=== PATIENT | male | born 1990 | race Caucasian/White ===

== ENCOUNTER 2022-07-29 23:05 | Emergency (ER) | payer BC, SELFPAY ==
--- NOTE | ~2022-07-29 | XR_ITS ---
EXAMINATION: XR chest 2V DATE: 07/30/2022 00:41 INDICATION: Transient alteration of awareness TECHNIQUE: PA and lateral views of the chest are obtained. COMPARISON: None available FINDINGS: The lungs are free of acute opacities. No pleural effusion or pneumothorax. The cardiomedia stinal silhouette is normal. The visualized bones and soft tissues are unremarkable. IMPRESSION: 1. No acute cardiopulmonary abnormality. Reviewed, dictated and finalized at location A.
[2022-07-29 23:06] VITALS: BP 124/74; PULSE 86; RESP 24; TEMP 37.7; O2SAT 94
--- NOTE | 2022-07-29 23:11 | ECG_ITS ---
Measurements Intervals [place] Rate: 93 P: 34 DC: 152 QRS: 3 QRSD: 109 T: 31 QT: 338 QTc: 421 Interpretive Statements SINUS RHYTHM NORMAL ELECTROCARDIOGRAM NO PREVIOUS ECG AVAILABLE FOR COMPARISON Electronically Signed On 07-30-2022 7:50:04 CDT by Valente Fox M.D.
[2022-07-29 23:13] VITALS: BP 126/74; PULSE 90; PULSE 95; RESP 25; O2SAT 95
[2022-07-29 23:31] VITALS: BP 113/73; PULSE 91; RESP 15; O2SAT 95
[2022-07-29 23:45] VITALS: PULSE 89; RESP 23; O2SAT 95
[2022-07-30] VITALS: PULSE 89; RESP 12; O2SAT 96
--- NOTE | 2022-07-30 00:11 | ED.GENADULT ---
HPI - General Adult General Chief complaint: Syncope Stated complaint: syncope Time Seen by Provider: 07/29/22 23:56 History of Present Illness HPI narrative: 31-year-old male presents with syncope. The patient, the family has been having viral URI symptoms and also stomach bug symptoms. Over the past few days he has been having nasal congestion diarrhea, nausea, nonbilious nonbloody emesis. Prior to ED presentation, he was kneeled down throwing up in the trash, during vomiting and had lost of consciousness. When he slumped down he bumped his head on a trash can. Triage note reviewed, mentions trauma to head on bathtub, this is incorrect. He denied abdominal pain, chest pain, dysuria, hematuria. She reports returning to his mental baseline quickly. Past medical history: Denied Past surgical history: Denied Medications: Denied Allergies: No known drug allergies Family history: No history of sudden cardiac , premature heart conditions Related Data Allergies Allergy/AdvReac Type Severity Reaction Status Date / Time No Known Allergies Allergy Verified 07/30/22 00:25 Review of Systems Review of Systems: See HPI Exam Narrative: APPEARANCE: Alert, calm and cooperative, no acute distress, phonating, sitting comfortably during visit HEAD: atraumatic EYES: Pupils equal round an reactive to light, extra ocular movements intact, no conjunctival injection NOSE: Normal no drainage NECK: Supple, without meningismus RESPIRATORY: Lungs clear to auscultation bilaterally, no wheezes/rales/rhonchi, breathing comfortably CARDIOVASCULAR: Regular rate and rhythm, no visible jugular venous distension ABDOMINAL: Soft, nontender, nondistended, no guarding, no rebound/peritoneal signs, no costovertebral tenderness to palpation BACK: no midline tenderness to palpation, no step offs EXTREMITIES: No edema, palpable peripheral pulses, warm, well perfused, no tenderness to bilateral calves. NEURO: Alert, moving all extremities symmetrically, ambulating steady gait, 5/5 strength throughout, no truncal ataxia, normal [id number] SKIN:: Warm, dry. Normal color PSYCHIATRIC: Normal affect/mood Course Vital Signs Vital signs: Vital Signs Temperature 99.8 F H 07/29/22 23:06 Pulse Rate 86 07/29/22 23:06 Respiratory Rate 24 H 07/29/22 23:06 Blood Pressure 124/74 07/29/22 23:06 Pulse Oximetry 94 07/29/22 23:06 Oxygen Delivery Room Air 07/29/22 23:06 Temperature 99.8 F H 07/29/22 23:06 Pulse Rate 73 07/30/22 01:17 Respiratory Rate 20 07/30/22 01:17 Blood Pressure 106/44 L 07/30/22 01:17 Pulse Oximetry 96 07/30/22 01:17 Oxygen Delivery Room Air 07/29/22 23:13 Medical Decision Making MDM Narrative Medical decision making narrative: Medical Decision Making 31-year-old male without past medical history presented with syncope in the setting of active emesis. Without significant head trauma. CT imaging of neck considered however patient satisfies [facility] CT C-spine rules (no focal neurological deficit, no midline spinal tenderness, no altered mental status, no intoxication, no distracting injury). CT head imaging considered, however unnecessary at this time given patient satisfies the [place] CT head rule (Mateus 16 years old, not on blood thinners, no seizure activity, GCS 15 at 2 hours postinjury, no suspected skull fracture, no signs of basilar skull fracture, no episodes of vomiting, no retrograde amnesia, no dangerous mechanism). Physical exam benign, sitting comfortably in bed, neuro exam nonfocal, vitals within normal limits. EKG without ischemic changes, normal sinus rhythm, intervals within normal limits. History and exam suggestive of vasovagal syncope. Bloodwork reviewed, noted to be unremarkable. Physical exam benign, neuro exam nonfocal, sitting comfortably in bed, vitals stable. The patient tolerated oral intake, is alert and oriented, speaking with clear speech, ambulated with steady gait, and
[2022-07-30 00:15] VITALS: PULSE 92; RESP 21; O2SAT 96
[2022-07-30 00:30] VITALS: PULSE 83; RESP 23; O2SAT 95
[2022-07-30] MEDS: SODIUM CHLORIDE 0.9% IV 1,000 ML 999 ML IV CONT (00:33)
[2022-07-30 00:45] VITALS: PULSE 84; RESP 22; O2SAT 96
[2022-07-30 00:53] LABS: Basophils Absolute Auto 0.1 K/mm3 (0.0-0.1); Basophils Percent Auto 0.7 % (0.2-1.2); Eosinophils Absolute Auto 0.1 K/mm3 (0-0.3); Eosinophils Percent Auto 1.9 % (0-4.4); Immature Granulocyte Absolute 0.02 K/mm3 (0.00-0.031); Immature Granulocyte Percent A 0.3 % (0-0.5); Lymphocytes Absolute Auto 0.63 K/mm3 (0.9-3.2); Lymphocytes Percent Auto 9.1 % (18.3-44.2); Mean Corpuscular HGB Conc 33.3 g/dl (32-36); Mean Corpuscular Hemoglobin 31.1 pg (26-34); Mean Corpuscular Volume 93.3 fl (80-100); Mean Platelet Volume 9.3 fl (7.4-10.4); Monocytes Absolute Auto 0.8 K/mm3 (0.1-0.6); Neutrophils Absolute Auto 5.3 K/mm3 (1.3-6.7); Platelet Count Result 250 k/mm3 (150-375); Red Cell Distribution Width 11.9 % (11.5-14.5); White Blood Count 6.9 K/mm3 (4.5-10.0)
[2022-07-30 01:14] LABS: Alanine Aminotransferase 32 U/L (6-50); Albumin Level 4.2 g/dL (3.5-5.1); Alkaline Phosphatase 80 U/L (38-126); Anion Gap 6 mmol/L (8-16); Aspartate Amino Transferase 27 U/L (17-59); Bilirubin,Total 1.3 mg/dL (0.2-1.3); Blood Urea Nitrogen 13 mg/dL (9-20); Calcium 8.4 mg/dL (8.4-10.2); Carbon Dioxide 25 mmol/L (22-30); Chloride 106 mmol/L (98-107); Estimated CRCL calculation 113 ml/min; Estimated Glomerular Filt Rate > 60; Glucose 102 mg/dL (65-110); Lipase 59 U/L (23-300); Potassium 3.9 mmol/L (3.4-5.0); Sodium 137 mmol/L (137-145)
[2022-07-30 01:17] VITALS: BP 106/44; PULSE 73; RESP 20; O2SAT 96
[2022-07-30 01:26] LABS: Troponin I < 0.012 ng/mL (0.000-0.034)
--- NOTE | 2022-07-30 02:00 | PC.NURSE ---
upon discharge normal saline bolus completed at this time, along with IV. IV was within normal limits and intact upon removal.
[2022-07-30 02:09] VITALS: BP 110/57; PULSE 71; RESP 23; O2SAT 97
== END 2022-07-30 02:09 | disposition home or self-care (01) ==
PROVIDERS: Emergency Provider Emergency Medicine
DX: R55 Syncope and collapse (principal)
CPT/HCPCS: 36415; 71046; 80048; 80076; 83690; 84484; 85025; 93005; 96360; 96361; 99284; J7030